=== PATIENT | female | born 1985 | race Caucasian/White ===

== ENCOUNTER 2020-12-23 09:09 | Outpatient (CLI) | payer MEDICARE, MEDICAID, SELFPAY | END 2020-12-23 09:10 | disposition home or self-care (01) | PROVIDERS: PCP Family Medicine; Visit Provider Family Medicine | DX: Z01.10 Encounter for examination of ears and hearing without abnormal findings (principal) | CPT/HCPCS: 92557; 92567 ==

== ENCOUNTER 2022-07-28 11:01 | Outpatient (CLI) | payer MEDICARE, MEDICAID, SELFPAY | END 2022-07-28 11:02 | disposition home or self-care (01) | LOC: ANHAUDIO 11:02 | PROVIDERS: PCP Family Medicine; Visit Provider Physician Assistant | DX: Z01.10 Encounter for examination of ears and hearing without abnormal findings (principal) | CPT/HCPCS: 92552; 92556; 92567 ==

== ENCOUNTER 2023-12-19 09:37 | Outpatient (CLI) | payer MEDICARE, MEDICAID, SELFPAY | END 2023-12-19 09:38 | disposition home or self-care (01) | LOC: ANHAUDIO 09:38 | PROVIDERS: PCP Physician Assistant; Visit Provider Physician Assistant | DX: Z01.10 Encounter for examination of ears and hearing without abnormal findings (principal) | CPT/HCPCS: 92552; 92556; 92567 ==